=== PATIENT | female | born 1985 | race Hispanic/Latino ===

== ENCOUNTER 2017-03-18 12:29 | Emergency (ER) | payer OTHER ==
[2017-03-18 12:30] VITALS: BMI 41.5
--- NOTE | 2017-03-18 13:11 | ED PDOC ---
Arrival/HPI - General Chief Complaint: Chest Pain Time Seen by Provider: 03/18/17 12:33 Historian: Patient - History of Present Illness Narrative History of Present Illness (Text): 03/18/17 13:16 A 31 year old female, who denies any significant past medical history, presents to the emergency department complaining of mild chest pain since yesterday evening. Patient reports left sided chest pain and describes it as pressure worse with deep breaths. No injury or trauma. Patient went to urgent care and was sent to emergency department for evaluation. Patient denies any fever or any other complaints at this time. Denies smoking. Reports to occasionally drinking. PMD: None Symptom Onset: Sudden Symptom Course: Unchanged Past Medical History - Provider Review Nursing Documentation Reviewed: Yes - Infectious Disease Hx of Infectious Diseases: None - Psychiatric Hx Substance Use: No - Surgical History Other/Comment: Right ACL surgery twice Family/Social History - Physician Review Nursing Documentation Reviewed: Yes Family/Social History: No Known Family HX Smoking Status: Never Smoked Hx Alcohol Use: Yes Frequency of alcohol use: Socially Hx Substance Use: No Allergies/Home Meds Allergies/Adverse Reactions: Allergies latex Allergy (Verified 03/18/17 13:02) ITCHING Sulfa (Sulfonamide Antibiotics) Allergy (Verified 03/18/17 13:02) RASH Fruits Allergy (Uncoded 03/18/17 13:02) SWELLING Nuts Allergy (Uncoded 03/18/17 13:02) SWELLING Home Medications: Home Meds Medication Instructions Recorded Confirmed Junel 1.5 mg-30 Mcg Tablet 1 tab PO DAILY 03/18/17 03/18/17 Review of Systems - Physician Review All systems were reviewed & negative as marked: Yes - Review of Systems Constitutional: absent: Fevers Cardiovascular: Chest Pain Neurological: absent: Headache Physical Exam Vital Signs Reviewed: Yes Vital Signs Temp Pulse Resp BP Pulse Ox 03/18/17 15:08 98.2 F 75 20 131/71 97 03/18/17 14:19 98.1 F 68 18 131/73 100 Temperature: Afebrile Blood Pressure: Normal Pulse: Regular Respiratory Rate: Normal Appearance: Positive for: Well-Appearing, Non-Toxic, Comfortable Pain Distress: None Mental Status: Positive for: Alert and Oriented X 3 - Systems Exam Head: Present: Atraumatic, Normocephalic Pupils: Present: PERRL Extroacular Muscles: Present: EOMI Conjunctiva: Present: Normal Mouth: Present: Moist Mucous Membranes Neck: Present: Normal Range of Motion Respiratory/Chest: Present: Clear to Auscultation, Good Air Exchange. No: Respiratory Distress, Accessory Muscle Use Cardiovascular: Present: Regular Rate and Rhythm, Normal S1, S2. No: Murmurs Abdomen: Present: Normal Bowel Sounds. No: Tenderness, Distention, Peritoneal Signs Back: Present: Normal Inspection Upper Extremity: Present: Normal Inspection. No: Cyanosis, Edema Lower Extremity: Present: Normal Inspection. No: Edema Neurological: Present: GCS=15, CN II-XII Intact, Speech Normal Skin: Present: Warm, Dry, Normal Color. No: Rashes Psychiatric: Present: Alert, Oriented x 3, Normal Insight, Normal Concentration Medical Decision Making ED Course and Treatment: 03/18/17 13:07 Impression: A 31 year old female with chest pain. Plan: -- EKG -- chest xray -- labs -- Urinalysis -- Reassess and disposition Progress Notes: Patient refuses any pain medications. EKG: Ordered, reviewed, and independently interpreted the EKG. Rate : 64 BPM Rhythm : NSR Interpretation : No ST/T wave changes 03/18/17 13:49 chest xray Creator : Josr Liang MD IMPRESSION: No active disease. 03/18/17 14:40 On re-evaluation, patient feels better and is in no acute distress. I have discussed the results and plan with the patient, who expresses understanding. Patient in agreement with plan to be discharged home. Patient is stable for discharge. Patient was instructed to follow up with physician/clinic in 1-2 days or return if symptoms worsen or new concerning symptoms arise. 03/18/17 14:59 pt states pain improve.d notified of luekotysosi. cxr neg. abd soft no ttp. leukoctyosis baseline from previous. advise she will need outpt follow up pt agrees. atypical pain. heart score low. stable for dc - Lab Interpretations Lab Results: 03/18/17 13:30 03/18/17 13:30 Lab Results 03/18/17 13:30: Sodium 139, Potassium 4.5, Chloride 104, Carbon Dioxide 25, Anion Gap 15, BUN 9, Creatinine 0.7, Est GFR ( Amer) > 60, Est GFR (Non- Af Amer) > 60, Random Glucose 87, Calcium 9.3, Magnesium 1.9, Total Bilirubin 0.4, AST 25, ALT 25, Alkaline Phosphatase 82, Lactate Dehydrogenase 347, Total Creatine Kinase 75, Troponin I < 0.01, Total Protein 7.1, Albumin 4.1, Globulin 3.1, Albumin/Globulin Ratio 1.3 03/18/17 13:30: PT 10.2, INR 0.94, APTT 28.3, D-Dimer, Quantitative 0.25 03/18/17 13:30: WBC 14.0 H, RBC 4.31, Hgb 12.6, Hct 38.2, MCV 88.6, MCH 29.2, MCHC 33.0, RDW 13.4, Plt Count 381, MPV 9.5, Gran % 72.5 H, Lymph % (Auto) 20.6 L, [place] % (Auto) 4.4, Eos % (Auto) 2.2, Baso % (Auto) 0.3, Gran # 10.16 H, Lymph # 2.9, [place] # 0.6, Eos # 0.3, Baso # 0.04 03/18/17 13:11: Urine Color Yellow, Urine Appearance Clear, Urine pH 7.5, Ur Specific [place] 1.010, Urine Protein Negative, Urine Glucose (UA) Negative, Urine Ketones Negative, Urine Blood Small H, Urine Nitrate Negative, Urine Bilirubin Negative, Urine Urobilinogen 0.2, Ur Leukocyte Esterase Negative, Urine RBC 0 - 2, Urine WBC 0 - 2, Ur Epithelial Cells 4 - 5, Urine Bacteria Few , Urine HCG, Qual Negative I have reviewed the lab results: Yes - RAD Interpretation Radiology Orders: 03/18/17 13:03 CHEST PORTABLE [RAD] Stat - EKG Interpretation Interpreted by ED Physician: Yes Type: 12 lead EKG - Scribe Statement The provider has reviewed the documentation as recorded by the Mark Sun Provider Scribe Attestation: All medical record entries made by the Pauibrodrigue were at my direction and personally dictated by me. I have reviewed the chart and agree that the record accurately reflects my personal performance of the history, physical exam, medical decision making, and the department course for this patient. I have also personally directed, reviewed, and agree with the discharge instructions and disposition. Disposition/Present on Arrival - Present on Arrival Any Indicators Present on Arrival: No History of DVT/PE: No History of Uncontrolled Diabetes: No Urinary Catheter: No History of Decub. Ulcer: No History Surgical Site Infection Following: None - Disposition Have Diagnosis and Disposition been Completed?: Yes Diagnosis: Chest pain, Leukocytosis Disposition: HOSPITALIZED Disposition Time: 03:00 Patient Problems: Current Active Problems Problem Status Onset Chest pain Acute Leukocytosis Acute Condition: STABLE Discharge Instructions (ExitCare): Chest Pain (ED), Leukocytosis (ED) Additional Instructions: please follow up with your doctor. return to emergency room with worsening symptoms or concerns. please discuss you lab results with your doctor/ specialist. you may require futher workup Referrals: [facility] [Outside] - Follow up with primary [facility] [Outside] - Follow up with primary Freddie Alamo MD [Staff Provider] - Follow up with primary PCP,NO [Primary Care Provider] - Follow up with primary Femi Jackman MD [Staff Provider] - Follow up with primary Forms: [facility] ([place])
[2017-03-18 13:20] LABS: PH,URINE 7.5 (4.7-8.0); URINE BILIRUBIN NEGATIVE (NEGATIVE); URINE BLOOD SMALL (NEGATIVE); URINE GLUCOSE (UA) NEGATIVE (NEGATIVE); URINE KETONE NEGATIVE (NEGATIVE); URINE LEUKOCYTE ESTERASE NEGATIVE Leu/uL (NEGATIVE); URINE PROTEIN NEGATIVE mg/dL (<30 mg/dL); URINE UROBILINOGEN 0.2 E.U./dL (<1 E.U./dL)
[2017-03-18 13:21] LABS: URINE APPEARANCE CLEAR (CLEAR); URINE COLOR YELLOW (YELLOW)
[2017-03-18 13:38] LABS: URINE BACTERIA FEW (NEG); URINE RBC 0 - 2 /hpf (0-2); URINE WBC 0 - 2 /hpf (0-6)
--- NOTE | 2017-03-18 13:46 | RAD ---
HISTORY: cp COMPARISON: No prior. FINDINGS: LUNGS: No active pulmonary disease. PLEURA: No significant pleural effusion identified, no pneumothorax apparent. CARDIOVASCULAR: Normal. OSSEOUS STRUCTURES: No significant abnormalities. VISUALIZED UPPER ABDOMEN: Normal. OTHER FINDINGS: None. IMPRESSION: No active disease.
[2017-03-18 13:52] LABS: BASO # 0.04 K/mm3 (0.0-2.0); BASO % 0.3 % (0.0-3.0); EOS # 0.3 (0.0-0.7); EOS % 2.2 % (1.5-5.0); GRAN # 10.16 (1.4-6.5); GRAN % 72.5 % (50.0-68.0); HEMATOCRIT 38.2 % (36.0-48.0); LYMPH # 2.9 (1.2-3.4); LYMPH % 20.6 % (22.0-35.0); MEAN CELL VOLUME 88.6 fl (80.0-105.0); MEAN CORPUSCULAR HEMOGLOBIN 29.2 pg (25.0-35.0); MEAN PLATELET VOLUME 9.5 fl (7.0-11.0); MONO # 0.6 (0.1-0.6); MONO % 4.4 % (1.0-6.0); RED CELL DISTRIBUTION WIDTH 13.4 % (11.5-14.5)
[2017-03-18 14:00] LABS: D DIMER 0.25 mg/L FEU (0-0.50); INR 0.94 (0.93-1.08); PARTIAL THROMBOPLASTIN TIME 28.3 Seconds (23.7-30.8)
[2017-03-18 14:40] LABS: ALB/GLOB RATIO 1.3 (1.1-1.8); ALKALINE PHOSPHATASE 82 U/L (38-133); ALT/SGPT 25 U/L (7-56); AST/SGOT 25 U/L (15-39); BILIRUBIN,TOTAL 0.4 mg/dL (0.2-1.3); BLOOD UREA NITROGEN 9 mg/dL (7-21); CALCIUM 9.3 mg/dL (8.4-10.5); CARBON DIOXIDE 25 mmol/L (21-33); CHLORIDE 104 mmol/L (98-107); GFR AFRICAN-AMERICAN > 60; GLUCOSE,RANDOM 87 mg/dL (70-110); MAGNESIUM 1.9 mg/dL (1.7-2.2); POTASSIUM 4.5 mmol/L (3.6-5.0); SODIUM 139 mmol/L (132-148); TOTAL PROTEIN 7.1 g/dL (5.8-8.3)
[2017-03-18 14:51] LABS: TROPONIN I < 0.01 ng/mL
[2017-03-18 15:08] VITALS: BP 131/71; PULSE 75; RESP 20; TEMP 98.2; O2SAT 97
--- NOTE | 2017-03-18 21:02 | CARD ---
APPROVED REPORT EKG Measurement Heart [id number] <Conclusion> Normal sinus rhythm Normal ECG
== END 2017-03-18 17:45 | disposition short-term general hospital (02) ==
LOC: ED 12:29
DX: R07.9 Chest pain, unspecified (principal); D72.829 Elevated white blood cell count, unspecified